=== PATIENT | female | born 1960 | race Caucasian/White ===

== ENCOUNTER → 2016-08-11 | Outpatient (CLI) | payer BC ==
--- NOTE | 2016-08-13 06:57 | MM ---
Reason for exam: screening (asymptomatic). Last mammogram was performed 1 year and 1 month ago. History: Patient is postmenopausal. Physical Findings: A clinical breast exam by your physician is recommended on an annual basis and results should be correlated with mammographic findings. MG Screening Mammo w CAD Bilateral CC and MLO view(s) were taken. Prior study comparison: June 29, 2015, bilateral MG screening mammo w CAD. February 01, 2014, bilateral MG screening mammo w CAD. December 07, 2012, bilateral digital screening mammo w/CAD. There are scattered fibroglandular densities. Benign bilateral oil cyst calcifications. No significant changes when compared with prior studies. ASSESSMENT: Negative, BI-RAD 1 RECOMMENDATION: Routine screening mammogram of both breasts in 1 year.
== END | disposition home or self-care (01) ==
LOC: RADMAMWWP 16:26
PROVIDERS: ATTEND Family Medicine
DX: Z12.31 Encounter for screening mammogram for malignant neoplasm of breast (principal)

== ENCOUNTER → 2019-02-25 | Outpatient (CLI) | payer BC ==
--- NOTE | 2019-02-28 07:57 | BD ---
EXAMINATION TYPE: Axial Bone Density DATE OF EXAM: 02/25/2019 COMPARISON: 07/04/2015 CLINICAL HISTORY: Height: 61 IN Weight: 175 LBS FRAX RISK QUESTIONS: Secondary Osteoporosis: 3. Menopause before 45: YES PARTIAL HYST AGE 24 RISK FACTORS HISTORY OF: Active: YES Postmenopausal woman: AGE 24 PARTIAL HYST MEDICATIONS: Thyroid Medications: YES Which medication: Synthroid How Long: SINCE AGE 15 Osteoporosis Medications: YES Which medication: Fosamax How Lon YEARS Additional Medications: VIT D, SYNTHROID, FOSAMAX, EXAM MEASUREMENTS: Bone mineral densitometry was performed using the [employer] System. Bone mineral density as measured about the Lumbar spine is: ----- L1-L4(G/cm2): 1.280 T Score Values are as follows: ----- L2: -0.2 ----- L3: 1.8 ----- L4: 2.1 ----- L1-L4: 0.8 Bone mineral density has: Increased 18.6% since study of: 07/04/2015 Bone mineral density about the R hip (g/cm2): 0.880 Bone mineral density about the L hip (g/cm2): 0.817 T Score values are as follows: -----R Neck: -1.1 -----L Neck: -1.6 -----R Total: -0.6 -----L Total: -1.5 Bone mineral density has: Increased 6.6% since study of: 07/04/2015 IMPRESSION: Osteopenia (T Score between -2.5 and -1) remains present. There remains slightly increased risk of fracture and the patient may be considered for treatment. Re-Screen 2-5 years. NOTE: T-SCORE=SD OF THE YOUNG ADULT MEAN.
--- NOTE | 2019-02-28 10:36 | MM ---
Reason for exam: screening (asymptomatic). Last mammogram was performed 2 years and 6 months ago. History: Patient is postmenopausal. Physical Findings: A clinical breast exam by your physician is recommended on an annual basis and results should be correlated with mammographic findings. MG Screening Mammo w CAD Bilateral CC and MLO view(s) were taken. Prior study comparison: August 11, 2016, bilateral MG screening mammo w CAD. June 29, 2015, bilateral MG screening mammo w CAD. There are scattered fibroglandular densities. Stable benign calcifications. There is no discrete abnormality. No significant changes when compared with prior studies. ASSESSMENT: Benign, BI-RAD 2 RECOMMENDATION: Routine screening mammogram of both breasts in 1 year.
== END | disposition home or self-care (01) ==
LOC: RADMAMWWP 15:16
PROVIDERS: ATTEND Family Medicine
DX: Z12.31 Encounter for screening mammogram for malignant neoplasm of breast (principal); M85.80 Other specified disorders of bone density and structure, unspecified site
CPT/HCPCS: 77067; 77080

== ENCOUNTER → 2020-08-02 | Outpatient (CLI) | payer BC ==
--- NOTE | 2020-08-07 11:42 | MM ---
Reason for exam: screening (asymptomatic). Last mammogram was performed 1 year and 5 months ago. History: Patient is postmenopausal. Physical Findings: A clinical breast exam by your physician is recommended on an annual basis and results should be correlated with mammographic findings. MG Screening Mammo w CAD Bilateral CC and MLO view(s) were taken. Prior study comparison: February 25, 2019, bilateral MG screening mammo w CAD. August 11, 2016, bilateral MG screening mammo w CAD. There are scattered fibroglandular densities. No significant changes when compared with prior studies. ASSESSMENT: Benign, BI-RAD 2 RECOMMENDATION: Routine screening mammogram of both breasts in 1 year.
== END | disposition home or self-care (01) ==
LOC: RADMAMWWP 15:16
PROVIDERS: ATTEND Family Medicine
DX: Z12.31 Encounter for screening mammogram for malignant neoplasm of breast (principal)
CPT/HCPCS: 77067

== ENCOUNTER → 2020-09-17 | Outpatient (CLI) | payer BC ==
--- NOTE | 2020-09-18 06:46 | MR ---
EXAMINATION TYPE: MR shoulder LT wo con DATE OF EXAM: 09/17/2020 COMPARISON: 11/13/2015 HISTORY: Left shoulder pain for 1 month. Multiplanar multiecho imaging of the left shoulder was performed without contrast. There are is metal artifact from previous surgery at the greater tuberosity of the humerus with metal pins. There is intact biceps tendon. The subscapularis tendon is intact. There is some narrowing of the glenohumeral joint space. There is intrasubstance tear in the supraspinatus tendon without retraction. There is no evidence of a fracture. I see no focal bone destruction. There is deformity of the superior glenoid labrum on the coronal images. IMPRESSION: Deformity of the superior glenoid labrum consistent with chronic tear and possibly surgery that is a change compared to old exam. There is clearing of the small shoulder joint effusion compared to old e xam. Mild osteoarthritic narrowing of the shoulder joint space. Intrasubstance tear of the supraspina tus tendon without a definite full-thickness tear. There is increased fluid signal in the tendon comp ared to old exam and consistent with chronic tendinitis.. There is improvement in the subacromial imp ingement compared to previous exam with apparent surgery at the AC joint.
== END | disposition home or self-care (01) ==
LOC: RADMRIMAIN 18:46
PROVIDERS: ATTEND Orthopaedic Surgery
DX: M19.012 Primary osteoarthritis, left shoulder (principal); M75.112 Incomplete rotator cuff tear or rupture of left shoulder, not specified as traumatic; M75.42 Impingement syndrome of left shoulder

== ENCOUNTER → 2020-10-26 | Outpatient (CLI) | payer BC ==
[2020-10-26 16:07] LABS: Basophils % (A) 1 %; Eosinophils # (A) 0.1 k/uL (0-0.7); Eosinophils % (A) 2 %; HCT 41.8 % (34.0-46.0); HGB 13.5 gm/dL (11.4-16.0); Lymphocytes # (A) 1.5 k/uL (1.0-4.8); Lymphocytes % (A) 28 %; MCH 30.5 pg (25.0-35.0); MCHC 32.2 g/dL (31.0-37.0); MCV 94.6 fL (80.0-100.0); Mean Platelet Volume 6.9; Monocytes # (A) 0.3 k/uL (0-1.0); Monocytes % (A) 5 %; Neutrophils # (A) 3.5 k/uL (1.3-7.7); Neutrophils % (A) 63 %; Platelet Count 224 k/uL (150-450); RBC 4.42 m/uL (3.80-5.40); RDW 13.7 % (11.5-15.5); WBC 5.5 k/uL (3.8-10.6)
[2020-10-26 16:13] LABS: Potassium 4.5 mmol/L (3.5-5.1)
== END | disposition home or self-care (01) ==
LOC: LABPAT 15:24
PROVIDERS: ATTEND Orthopaedic Surgery
DX: Z01.818 Encounter for other preprocedural examination (principal); M75.42 Impingement syndrome of left shoulder
CPT/HCPCS: 36415; 80051; 85025; 93005

== ENCOUNTER 2020-11-08 07:37 | Day surgery (SDC) | payer BC ==
[2020-11-06 11:43] VITALS: BMI 32.5
--- NOTE | 2020-11-07 18:03 | HP ---
HISTORY AND PHYSICAL DATE OF SURGERY: 11/08/2020 Liliana Kelly is a 60-year-old patient seen with progressive left shoulder pain. We discussed options for treatment. She elected to proceed with arthroscopy. Consent was obtained. PAST MEDICAL HISTORY: Hypothyroidism and asthma. PAST SURGICAL HISTORY: Left shoulder arthroscopy. DAILY MEDICATIONS: Hydrocodone, Synthroid. ALLERGIES: NONE. SOCIAL HISTORY: She denies current tobacco use. PHYSICAL EVALUATION OF HER LEFT SHOULDER: Flexion is 150, abduction is 130, external rotation is 30 with pain and weakness. There is tenderness along the anterolateral acromion and rotator cuff insertion site. Impingement is positive at 90. Drop-arm sign is positive. Distal neurovascular exam is intact. RADIOGRAPHS: Radiographs of the left shoulder revealed some cystic changes of the tuberosity. Left shoulder MRI revealed labral tear and partial rotator cuff tendon tear. IMPRESSION: 1. Left shoulder labral tear with possible rotator cuff tear. 2. Hypothyroidism. PLAN: Left shoulder arthroscopy with labral repair versus debridement, possible arthroscopic rotator cuff repair. MMODL / IJN: [id number] /
[~2020-11-08 07:37] MED LIST: DEXAMETHASONE SOD PHOSPHATE 4 MG/ML 1 ML VIAL IV ONE; HYDROmorphone 0.5 MG/0.5 ML SYRINGE IVP PRN; LACTATED RINGERS 1,000 ML IV SCH; LIDOCAINE 1% (10MG/ML) FOR IV START INTRADERMA PRN; MIDAZOLAM 2 MG/2 ML VIAL IV PRN; ONDANSETRON 4 MG/2 ML VIAL IVP ONE
[2020-11-08 08:16] LABS: Glucose,Whole Blood 97 mg/dL (75-99)
[2020-11-08] MEDS ORDERED: MIDAZOLAM 2 MG/2 ML VIAL IVP ONE ×2 (08:20→08:25)
[2020-11-08] MEDS ORDERED: ROPIVACAINE 5 MG/ML 30 ML VIAL ONE (09:06)
[2020-11-08] MEDS ORDERED: SUCCINYLCHOLINE CHLORIDE 100 MG/5 ML SYR IV ONE (09:06)
[2020-11-08] MEDS ORDERED: GLYCOPYRROLATE 0.2 MG/ML 2 ML VIAL ONE (09:06)
[2020-11-08] MEDS ORDERED: ePHEDrine SULFATE/0.9% NACL/PF 50 MG/5 ML SYRINGE IV ONE (09:06)
[2020-11-08] MEDS ORDERED: DEXAMETHASONE SOD PHOSPHATE 4 MG/ML 1 ML VIAL ONE (09:06)
[2020-11-08] MEDS ORDERED: PROPOFOL 10 MG/ML 20 ML VIAL IV ONE (09:06)
[2020-11-08] MEDS ORDERED: LIDOCAINE 1% INJ 10MG/ML (20 ML MDV) ONE (09:06)
[2020-11-08] MEDS ORDERED: fentaNYL (PF) 50 MCG/ML 2 ML AMP ONE (09:06)
[2020-11-08] MEDS ORDERED: LACTATED RINGERS 1,000 ML IV ONE (10:04)
--- NOTE | 2020-11-08 10:36 | P.OP ---
Date of Procedure: 11/08/20 Preoperative Diagnosis: Left shoulder impingement Postoperative Diagnosis: 1. Left shoulder rotator cuff tear 2. Left shoulder impingement Procedure(s) Performed: 1. Left shoulder arthroscopic rotator cuff repair 2. Left shoulder arthroscopic subacromial decompression Implants: 1Arthrex 4.75 swivel lock anchor Anesthesia: GETA, local (Interscalene block) Surgeon: Keyon Baum Plastic Parts Designer #1: Willam Masters Estimated Blood Loss (ml): 7 Pathology: none sent Condition: stable Disposition: PACU Indications for Procedure: 60-year-old patient seen with progressive left shoulder pain. After having treatment options discussed, she elected to proceed with arthroscopy. Operative Findings: See description of procedure Description of Procedure: Patient underwent an interscalene block by department of anesthesia. The patient was then taken to the operative suite. The patient underwent a general anesthetic by the department of anesthesia. The patient was placed into a lateral position and secured. There was appropriate padding of the bony prominence. Left shoulder was then prepped and draped in normal sterile orthopedic fashion. We placed the extremity in 10 pounds of longitudinal traction. A posterior incision was now made for a posterior working portal site. The trocar and cannula were inserted into the glenohumeral joint. Arthroscopy was initiated. Spinal needle was now inserted anteriorly, to ascertain the anterior working portal site. An incision was now made in that area, a trocar was inserted followed by a probe. The labrum was probed and found to be stable. There were grade 2/3 chondromalacia changes of the glenohumeral joint with no osteochondral tears present. The biceps tendon was absent. Instruments now removed from glenohumeral joint. Utilizing the posterior working portal site, the trocar and cannula were inserted into the subacromial space. Arthroscopy initiated. I made an incision 2 fingerbreadths lateral to the acromion. I introduced my trocar followed by my ArthroCare ablator. I now began ablating thick subacromial bursal tissue, which exposed the undersurface of the anterior acromion. There was a previous decompression with residual bony prominence at the acromioclavicular joint area. I introduced a motorized shaver and performed a decompression. There was good decompression of the entire subacromial space. The acromioclavicular joint was visualized and noted to have some osteoarthritis but not enough to warrant a Jeromy procedure. I noted some significant tearing along the distal supraspinatus. Upon probing the area was a full-thickness perforation present. There was residual suture and the areas well consistent with the previous repair. This tear actually appeared to be at the area of the posterior aspect of the previous repair and more posterior to that. I did debride the margins getting down to stable tendon tissue. The defect measured 1.5 cm and was freely mobile over the footprint. I removed some residual suture along the anterior defect. I abraded the footprint with a motorized bur. I passed 2 everted mattress sutures with Arthrex fiber tape through good bites of rotator cuff tendon with the assistance of Willam SILVER. I punched a hole in the footprint area for insertion of an anchor. I passed all 4 limbs of fiber tape through the eyelet of a 4.75 Arthrex swivel lock anchor. I placed the eyelet into the pre- punch hole and held in position while Willam SILVER tensioned all the sutures and the donna the anchor with excellent fixation noted. All residual suture limbs were now clipped. We had good compression of the tendon along the entire footprint. Instruments now removed from the portal sites. All portal sites were approximated with nylon suture. Sterile dressings were applied followed by a shoulder sling. Willam SILVER assisted in this complex case. The patient was awakened, transferred to a bed, and taken to recovery in stable condition.
[2020-11-08 10:47] VITALS: TEMP 96.8
[2020-11-08 11:43] VITALS: BP 127/81; PULSE 73; RESP 20
--- NOTE | 2020-11-08 20:07 | P.ANPRN ---
Procedure Note - Anesthesia - Nerve Block Performed Left Interscalene Single Time Out Performed: Yes Date of Procedure: 11/08/20 Procedure Start Time: : Procedure Stop Time: :30 Location of Patient: PreOp Indication: Acute Post-Operative Pain, Requested by Surgeon Sedation Type: Sedate with meaningful contact maintained Preparation: Sterile Prep Position: Supine Needle Types: Pajunk Needle Gauge: 21 Ultrasound used to visualize needle placement: Yes Ultrasound used to observe medication spread: Yes Blood Aspirated: No Pain Paresthesia on Injection Noted: No Resistance on Injection: Normal Image Stored and Saved: Yes Events: Uneventful and Well Tolerated (ropi .5% 20cc plus dexamethasone 4mg)
== END 2020-11-08 12:08 | disposition home or self-care (01) ==
LOC: OR 07:37
PROVIDERS: ATTEND Orthopaedic Surgery
DX: M75.102 Unspecified rotator cuff tear or rupture of left shoulder, not specified as traumatic (principal); E03.9 Hypothyroidism, unspecified; J45.909 Unspecified asthma, uncomplicated; Z79.899 Other long term (current) drug therapy; S43.402A Unspecified sprain of left shoulder joint, initial encounter; X58.XXXA Exposure to other specified factors, initial encounter
CPT/HCPCS: 64415; 76942; 29827; 29826; C1713; J2250; J1100; J0690; J2405; J2001; J3010; J2795; J0330; J2704

== ENCOUNTER 2020-11-16 19:23 | Emergency (ER) | payer BC ==
[2020-11-16 19:28] VITALS: PULSE 80
--- NOTE | 2020-11-16 19:48 | ED ---
Lower Extremity Injury HPI - General Chief Complaint: Extremity Injury, Lower Stated Complaint: Lft knee pain Time Seen by Provider: 11/16/20 19:30 Source: patient Mode of arrival: wheelchair Limitations: no limitations - History of Present Illness Initial Comments: 60-year-old male presents to the emergency department with a chief complaint of left knee and leg swelling. Patient reports it is ago she had left shoulder surgery. States about 3 days ago she developed left knee swelling. States the pain is rating distally along with swelling to the knee. She reports wearing a compression stocking to help with the swelling. She reports some Pain near the popliteal region. She denies any paresthesias or weakness to the leg. She reports pain is exacerbated with weightbearing, full flexion and full extension. She denies any erythema or ecchymotic changes. Denies chest pain or shortness of breath. - Related Data Home Medications Medication Instructions Recorded Confirmed Alendronate Sodium/Vitamin D3 1 tab PO TOBIN 12/13/15 11/16/20 [Fosamax Plus D 70 mg-2,800 Iu] Calcium Carbonate/Vitamin D3 1 tab PO DAILY 12/13/15 11/16/20 [Calcium 600-Vit D3 200 Tablet] Multivitamins, Thera [Multivitamin] 1 tab PO DAILY 02/04/16 11/16/20 Albuterol Sulfate [Proair Hfa] 1 - 2 puff INHALATION RT-Q6H PRN 11/16/20 11/16/20 Levothyroxine Sodium [Synthroid] 125 mcg PO DAILY 11/16/20 11/16/20 Previous Rx's Medication Instructions Recorded HYDROcodone/APAP 7.5-325MG [Palm 1 tab PO Q6HR PRN #24 tab 11/08/20 7.5-325] Allergies Allergy/AdvReac Type Severity Reaction Status Date / Time No Known Allergies Allergy Verified 11/16/20 19:53 Review of Systems ROS Statement: Those systems with pertinent positive or pertinent negative responses have been documented in the HPI. ROS Other: All systems not noted in ROS Statement are negative. Past Medical History Past Medical History: Asthma, Diabetes Mellitus, Thyroid Disorder Additional Past Medical History / Comment(s): diet control diabetic, anemia, History of Any Multi-Drug Resistant Organisms: None Reported Past Surgical History: Appendectomy, Bariatric Surgery, Bladder Surgery, Cholecystectomy, Hysterectomy, Orthopedic Surgery Additional Past Surgical History / Comment(s): thyroidectomy, blanquita carpel tunnel, left knee arthroscopy, lap band/later removed, gastric sleeve, left shoulder 2020 Past Anesthesia/Blood Transfusion Reactions: Previous Problems w/ Anesthesia Additional Past Anesthesia/Blood Transfusion Reaction / Comment(s): "hard to wake up" Past Psychological History: No Psychological Hx Reported Smoking Status: Never smoker Past Alcohol Use History: Rare Past Drug Use History: None Reported - Past Family History Sister(s) Family Medical History: Cancer General Exam Limitations: no limitations General appearance: alert, in no apparent distress, obese Head exam: Present: atraumatic, normocephalic, normal inspection Eye exam: Present: normal appearance, PERRL, EOMI Pupils: Present: normal accommodation ENT exam: Present: normal exam, normal oropharynx, mucous membranes moist Neck exam: Present: normal inspection, full ROM. Absent: tenderness Respiratory exam: Present: normal lung sounds bilaterally. Absent: respiratory distress, wheezes, rales, rhonchi, stridor, chest wall tenderness, accessory muscle use Cardiovascular Exam: Present: regular rate, normal rhythm, normal heart sounds. Absent: systolic murmur Extremities exam: Present: normal inspection (Mild swelling noted towards the left knee.), full ROM, tenderness (Tenderness in the lateral end of the patellar region. There is also some tenderness noted near the proximal calf.), normal capillary refill, calf tenderness (left calf), other (Palpable DP and PT bilaterally). Absent: pedal edema, joint swelling Back exam: Present: normal inspection, full ROM. Absent: tenderness, CVA tenderness (R), CVA tenderness (L) Neurological exam: Present: alert, oriented X3 Psychiatric exam: Present: normal affect, normal mood Skin exam: Present: warm, dry, intact, normal color Course Vital Signs 11/16/20 19:24 Temperature 98.5 F Pulse Rate 80 Respiratory 19 Rate Blood Pressure 153/90 O2 Sat by Pulse 100 Oximetry Medical Decision Making - Medical Decision Making 60-year-old male presents to the emergency department with a chief complaint of left knee and leg swelling. On physical examination, mild swelling over the left knee. No signs of infection at this time. Ultrasound reveals no signs of a DVT. X-ray of the knee shows hypertrophic osteoarthritis. Likely this is causing the patient's symptoms. I advised her to follow-up with her orthopedic doctor regarding the symptoms she is extracted. She is otherwise neurovascularly intact. Does not have any chest pain or shortness of breath. Advised to take Tylenol home. She cannot take antibiotics or medications due to a gastric sleeve. Strict return parameters were thoroughly discussed the patient is understanding and agreeable. Case discussed with Disposition Clinical Impression: Swelling of left knee joint, Left knee pain Disposition: HOME SELF-CARE Condition: Stable Instructions (If sedation given, give patient instructions): Knee Pain (ED) Additional Instructions: Please return to the Emergency Department if symptoms worsen or any other concerns. Is patient prescribed a controlled substance at d/c from ED?: No Referrals: Francisco Yu MD [Primary Care Provider] - 1-2 days Time of Disposition: 21:32
--- NOTE | 2020-11-16 20:25 | XR ---
EXAMINATION TYPE: XR knee complete LT DATE OF EXAM: 11/16/2020 COMPARISON: None HISTORY: Pain TECHNIQUE: 3 views FINDINGS: There is moderate narrowing of the medial joint space. I see no fracture nor dislocation. T here is large knee joint effusion. There is spurring on the patella. IMPRESSION: Hypertrophic osteoarthritis. No fracture.
--- NOTE | 2020-11-16 21:25 | US ---
EXAMINATION TYPE: US venous doppler duplex LE LT DATE OF EXAM: 11/16/2020 9:13 PM COMPARISON: NONE CLINICAL HISTORY: r/o dvt. left knee pain for 2 days SIDE PERFORMED: left TECHNIQUE: The lower extremity deep venous system is examined utilizing real time linear array sonog malcolm with graded compression, doppler sonography and color-flow sonography. VESSELS IMAGED: Common Femoral Vein Deep Femoral Vein Greater Saphenous Vein * Femoral Vein Popliteal Vein Small Saphenous Vein * Proximal Calf Veins (* superficial vessels) Left Leg: no evidence of DVT at this time. rouleaux flow left popliteal vein IMPRESSION: No evidence of deep vein thrombosis in the left leg.
[2020-11-16 22:00] VITALS: BP 142/72; RESP 18; TEMP 98.2
== END 2020-11-16 21:58 | disposition home or self-care (01) ==
LOC: EC 19:23
DX: M25.562 Pain in left knee (principal); J45.909 Unspecified asthma, uncomplicated; E11.9 Type 2 diabetes mellitus without complications; E07.9 Disorder of thyroid, unspecified; Z90.49 Acquired absence of other specified parts of digestive tract; Z90.89 Acquired absence of other organs; Z90.710 Acquired absence of both cervix and uterus
CPT/HCPCS: 99284

== ENCOUNTER → 2021-04-19 | Outpatient (CLI) | payer OTHER ==
--- NOTE | 2021-04-19 10:12 | XR ---
Right hand HISTORY: Trauma one week prior and pain and swelling 3 views of the right hand Bone mineralization, joint spaces and alignment are maintained. Punctate metallic density medial to t he proximal middle phalanx of the third digit right hand is well-corticated and not felt likely to be acute. There is some calcification seen along the region of the triangular fibrocartilage. Arthropat hy change present at the carpometacarpal joint of the first digit. IMPRESSION: No acute fracture or dislocation. Consider crystal deposition arthropathy, osteoarthritis
== END | disposition home or self-care (01) ==
LOC: RADXRMAIN 09:27
PROVIDERS: ATTEND Emergency Medicine
DX: M79.641 Pain in right hand (principal); S69.91XA Unspecified injury of right wrist, hand and finger(s), initial encounter

== ENCOUNTER → 2021-09-17 | Outpatient (CLI) | payer BC | END | disposition home or self-care (01) | LOC: LABPAT 09:44 | PROVIDERS: ATTEND Orthopaedic Surgery | DX: Z01.812 Encounter for preprocedural laboratory examination (principal); M17.12 Unilateral primary osteoarthritis, left knee; Z22.322 Carrier or suspected carrier of Methicillin resistant Staphylococcus aureus | CPT/HCPCS: 87070 ==

== ENCOUNTER → 2021-10-01 | Outpatient (CLI) | payer BC ==
[2021-10-01 16:45] LABS: Partial Thromboplastin Time 25.6 sec (22.0-30.0); Prothrombin Time 10.7 sec (9.0-12.0)
[2021-10-01 23:40] LABS: Basophils # (A) 0.03 X 10*3/uL (0.00-0.10); Basophils % (A) 0.5 %; Eosinophils # (A) 0.16 X 10*3/uL (0.04-0.35); Eosinophils % (A) 2.6 %; HCT 40.4 % (37.2-46.3); HGB 12.9 g/dL (12.0-15.0); Immature Grans, Automated 0.2 %; Lymphocytes % (A) 27.8 %; MCHC 31.9 g/dL (32.0-37.0); Mean Platelet Volume 9.6 fL (9.5-12.2); Monocytes # (A) 0.43 X 10*3/uL (0.20-1.00); NRBC Per 100 WBC 0 /100 WBCS (0.0-0.0); Neutrophils # (A) 3.78 X 10*3/uL (1.80-7.70); Neutrophils % (A) 61.9 %; Platelet Count 251 X 10*3/uL (140-440); RDW 12.7 % (11.5-14.5); WBC 6.11 X 10*3/uL (4.50-10.00)
[2021-10-01 23:48] LABS: Albumin 4.5 g/dL (3.8-4.9); Albumin/Globulin Ratio 1.36 (1.60-3.17); Anion Gap 12.3 mmol/L (10.00-18.00); BUN/Creat Ratio 22.78 Ratio (12.00-20.00); Blood Urea Nitrogen 20.5 mg/dL (9.0-27.0); Calcium 9.7 mg/dL (8.7-10.3); Carbon Dioxide 22.7 mmol/L (20.0-27.5); Globulin 3.3 g/dL (1.6-3.3); Potassium 4.6 mmol/L (3.5-5.5); Total Bilirubin 0.3 mg/dL (0.30-1.20); Total Protein 7.8 g/dL (6.2-8.2)
[2021-10-02 00:49] LABS: Appearance,Urine Turbid (Clear); Bacteria,Urine 3+ /HPF (None Seen); Bilirubin,Urine Negative (Negative); Blood,Urine Trace (Negative); Calcium Oxalate Crystals,Urine Present /LPF (None Seen); Color,Urine Yellow (Yellow); Ketones,Urine Negative (Negative); Nitrite,Urine Positive (Negative); Specific Gravity,Urine 1.026 (1.001-1.030)
== END | disposition home or self-care (01) ==
LOC: LABPAT 15:23
PROVIDERS: ATTEND Family Medicine
DX: Z01.812 Encounter for preprocedural laboratory examination (principal); E03.9 Hypothyroidism, unspecified; M17.12 Unilateral primary osteoarthritis, left knee; M54.40 Lumbago with sciatica, unspecified side; M85.80 Other specified disorders of bone density and structure, unspecified site; G89.29 Other chronic pain; K21.9 Gastro-esophageal reflux disease without esophagitis; Z86.16 Personal history of COVID-19
CPT/HCPCS: 80053; 81001; 85025; 85610; 85730

== ENCOUNTER → 2021-10-14 | Day surgery (SDC) | payer BC, OTHER ==
[2021-10-11 09:31] VITALS: BMI 33.4
--- NOTE | 2021-10-13 10:35 | HP ---
HISTORY AND PHYSICAL DATE OF SURGERY: 10/14/2021 Liliana Kelly is a 60-year-old patient seen with symptomatic left knee osteoarthritis. We discussed options for treatment. She elected to proceed with left total knee arthroplasty. Consent regarding the procedure was obtained. Clearance was provided by Dr. Yu. PAST MEDICAL HISTORY: Hypothyroidism, asthma. PAST SURGICAL HISTORY: Left shoulder arthroscopy. DAILY MEDICATIONS: Synthroid. ALLERGIES: NONE. SOCIAL HISTORY: She denies tobacco use. PHYSICAL EVALUATION OF THE LEFT KNEE: Her range of motion is negative 7 to 85. Moderate effusion. Tenderness, medial joint line. Crepitus, medial and patellofemoral compartments with range of motion. Pain with patellofemoral compression. Ligaments stable. Hip rotation without pain. Distal neurovascular exam is intact. Radiographs of the left knee reveal severe osteoarthritic changes. IMPRESSION: 1. Left knee osteoarthritis. 2. Hypothyroidism. 3. Asthma. PLAN: Left total knee arthroplasty. MMODL / IJN: [id number] /
[~2021-10-14] MED LIST changes: +ACETAMINOPHEN TAB 500 MG TAB PO PRN; -DEXAMETHASONE SOD PHOSPHATE 4 MG/ML 1 ML VIAL IV ONE; +DEXAMETHASONE SOD PHOSPHATE 4 MG/ML 1 ML VIAL ONE; +HYDROcodone/APAP 5-325MG 1 EACH TAB PO PRN; +HYDROcodone/APAP 7.5-325MG 1 EACH TAB ONE; +HYDROcodone/APAP 7.5-325MG 1 EACH TAB PO ONE; +HYDROcodone/APAP 7.5-325MG 1 EACH TAB PO PRN; +HYDROmorphone (PF) 1 MG/ML ONE; +HYDROmorphone 0.2 MG/1 ML SYRINGE IVP PRN; +LACTATED RINGERS 1,000 ML BAG IV ONE; +LACTATED RINGERS 1,000 ML IV ONE; -LACTATED RINGERS 1,000 ML IV SCH; -LIDOCAINE 1% (10MG/ML) FOR IV START INTRADERMA PRN; +LIDOCAINE 2% INJ 20 MG/ML (2 ML VIAL) ONE; +MELOXICAM 7.5 MG TAB PO PRN; -MIDAZOLAM 2 MG/2 ML VIAL IV PRN; +MIDAZOLAM 2 MG/2 ML VIAL ONE; +NALOXONE 0.4 MG/ML 1 ML VIAL IV PRN; +ONDANSETRON 4 MG/2 ML VIAL IVP PRN; +ONDANSETRON 4 MG/2 ML VIAL ONE; +PROPOFOL 10 MG/ML 20 ML VIAL IV ONE; +ROPIVACAINE 0.2%-NS ON-Q PUMP 1,090 MG, EMPTY PAIN BALL 1 EACH MISCELLANE PRN; +ROPIVACAINE 5 MG/ML 30 ML VIAL ONE; +SODIUM CHLORIDE 0.9% (PF) 10 ML VIAL ONE; +SUCCINYLCHOLINE CHLORIDE 100 MG/5 ML SYR IV ONE; +TRANEXAMIC ACID IN NACL,ISO-OS 1,000 MG in SALINE 1 100ML.BAG IVPB PRN; +TRANEXAMIC ACID IN NACL,ISO-OS 1,000 MG/100 ML BAG ONE; +ceFAZolin 1,000 MG in SODIUM CHLORIDE 0.9% 1,000 ML IRRIGATION ONE; +ePHEDrine 50 MG/ML 1 ML VIAL ONE; +fentaNYL (PF) 50 MCG/ML 2 ML AMP ONE
[2021-10-14] MEDS: IV FLUID CONTINUATION 400 ML IV ONE ×2 (07:29→10:34)
[2021-10-14 10:46] LABS: Glucose,Whole Blood 81 mg/dL (75-99)
--- NOTE | 2021-10-14 11:44 | P.ANPRN ---
Procedure Note - Anesthesia - Nerve Block Performed Left Adductor Canal Infusion Time Out Performed: Yes Date of Procedure: 10/14/21 Procedure Start Time: :02 Procedure Stop Time: 07:13 Location of Patient: PreOp Indication: Requested by Surgeon Specifically requested for management of pain by DrRen: Keyon Baum Sedation Type: Sedate with meaningful contact maintained Preparation: Sterile Prep, Sterile Dressing Position: Supine Catheter: Indwelling Needle Types: Pajunk Needle Gauge: 18 Ultrasound used to visualize needle placement: Yes Ultrasound used to observe medication spread: Yes Injectate: 0.5% Ropivacaine (see comment for volume) (15 ml + 15 ml 0.9 % NS) Blood Aspirated: No Pain Paresthesia on Injection Noted: No Resistance on Injection: Normal Image Stored and Saved: Yes Events: Uneventful and Well Tolerated
--- NOTE | 2021-10-14 11:46 | P.ANPRN ---
Procedure Note - Anesthesia - Nerve Block Performed Left iPack Single Time Out Performed: Yes Date of Procedure: 10/14/21 Procedure Start Time: :14 Procedure Stop Time: Location of Patient: PreOp Indication: Requested by Surgeon (cheyenne hartman) Specifically requested for management of pain by Dr.: Keyon Baum Sedation Type: Sedate with meaningful contact maintained Preparation: Sterile Prep Position: Right Lateral Needle Types: Pajunk Needle Gauge: 21 Ultrasound used to visualize needle placement: Yes Ultrasound used to observe medication spread: Yes Injectate: 0.5% Ropivacaine (see comment for volume) (15 ml =+ 10 ml NS +4mg Dexamethasone) Blood Aspirated: No Pain Paresthesia on Injection Noted: No Resistance on Injection: Normal Image Stored and Saved: Yes Events: Uneventful and Well Tolerated
[2021-10-14 13:49] VITALS: RESP 14
--- NOTE | 2021-10-14 13:56 | OP ---
OPERATIVE REPORT DATE OF SERVICE: 10/14/2021. PREOPERATIVE DIAGNOSIS: Symptomatic left knee osteoarthritis. POSTOPERATIVE DIAGNOSIS: Symptomatic left knee osteoarthritis. PROCEDURE: Left total knee arthroplasty. SURGEON: Dr. Baum. ASSIST: Duncan SILVER. ANESTHESIA: General with preoperative canal catheter, and iPack block for postoperative pain management. ESTIMATED BLOOD LOSS: 75 mL. IMPLANTS: 1. DePuy Attune size 4 left cruciate-retaining cemented femur. 2. DePuy Attune size 4 fixed bearing cemented tibial base plate. 3. DePuy Attune size 4 fixed bearing cruciate retaining, 8 mm polyethylene tibial insert. 4. DePuy Attune 35 mm all-polyethylene cemented patella. INDICATIONS: 60-year-old patient seen with symptomatic left knee osteoarthritis. After treatment options were discussed, she elected to proceed with left total knee arthroplasty. Consent was obtained. PROCEDURE: The patient underwent a adductor canal catheter placement and iPack block by the Department of Anesthesia for postoperative pain management. She was taken to the operative suite. She underwent general anesthetic by Department of Anesthesia. She received preoperative IV antibiotics and TXA. A well-padded tourniquet was placed along the proximal left thigh. The left lower extremity was prepped and draped in normal sterile orthopedic fashion. The extremity was elevated and tourniquet insufflated to 300. I made an anterior incision sharply through skin. Dissected down through the subcutaneous soft tissues down to the extensor mechanism. I then made a medial arthrotomy and the patella was everted. Knee flexed and I noted severe osteoarthritic changes throughout the medial patellofemoral compartments. I now made intramedullary drill hole to distal femur placement. I placed intramedullary distal femoral cutting jig and made the distal femoral cut. I now placed retractors along the proximal tibia. I used my proximal tibial cutting jig to make proximal tibial cut. I now used my distal femoral sizing guide and made appropriate distal femoral pins to accommodate that. A size 4 4 in 1 cutting guide was positioned. The distal femoral cuts were made. I now placed the knee in full extension. Debrided out any residual meniscal tissue and performed some hemostasis of the posterior capsule. I now made the appropriate notch cut for our femoral component. We then placed our trial components in position. I took the knee through range of motion. We had full extension, full flexion with good intraoperative stability about the knee. The patella was everted. A flush was made patellar quad tendon. I now trialed a 35, patella was tracking nicely. Appropriate peg hole drills were made and the trial patella was positioned again and tracked nicely. I had now drilled the femoral lug holes for the femoral component. I then removed all trial components. We then placed retractors along the proximal tibia. I then placed my size 4 guide and made the appropriate keel punch hole. I now took the knee back into full extension. We copiously irrigated the joint with mechanical pulse lavage irrigation. I achieved additional hemostasis via electrocautery. We now opened all the implant components. We then irrigated the wound out again copiously with pulse lavage mechanical irrigation. We mixed our antibiotic methylmethacrylate. Once that was ready, the knee was again flexed. We dried it out with fresh sponges. Retractors were positioned on the proximal tibia. I cemented down our the tibial tray. Any excess methylmethacrylate was removed. I then inserted the polyethylene tibial tray, locked in the position. We then cemented down the femoral component making sure were removed any excess methylmethacrylate. We then cemented down the patella and held in position with a patellar clamp. The knee was held in full extension. Patella clamp positioned once the methylmethacrylate had hardened. Once it hardened, the patellar clamp was removed. We now released the tourniquet. We achieved hemostasis via electrocautery diligently. We now irrigated the wound out copiously with mechanical irrigation. the extensor mechanism with #1 Ethibond. I checked that repair and it was stable. We repaired the subcu soft tissues with 2-0 Vicryl followed by repairing the skin with a mixture of subcutaneous suture and skin glue and . Sterile dressings were applied. The patient was now awakened and transferred to recovery in stable condition having tolerated the procedure well. Duncan Delaney assisted with the procedure. MMODL / IJN: [id number] /
[2021-10-14 14:54] VITALS: BP 146/78; PULSE 98
--- NOTE | 2021-10-14 15:09 | XR ---
EXAMINATION TYPE: XR knee limited LT DATE OF EXAM: 10/14/2021 COMPARISON: 11/08/2020 HISTORY: Postop TECHNIQUE: 2 view left knee FINDINGS: Tibial and femoral components are present. No acute fracture or dislocation is evident. Pos tsurgical changes are present within the soft tissues. IMPRESSION: 1. No acute fracture post knee replacement.
== END | disposition home health service (06) ==
LOC: OR 05:51
PROVIDERS: ATTEND Orthopaedic Surgery
DX: M17.12 Unilateral primary osteoarthritis, left knee (principal); E03.9 Hypothyroidism, unspecified; J45.909 Unspecified asthma, uncomplicated; K21.9 Gastro-esophageal reflux disease without esophagitis; E78.2 Mixed hyperlipidemia; G89.29 Other chronic pain; M54.30 Sciatica, unspecified side; M85.80 Other specified disorders of bone density and structure, unspecified site; E55.9 Vitamin D deficiency, unspecified; E66.9 Obesity, unspecified; Z68.33 Body mass index [BMI] 33.0-33.9, adult; Z83.3 Family history of diabetes mellitus; Z81.1 Family history of alcohol abuse and dependence; Z82.49 Family history of ischemic heart disease and other diseases of the circulatory system; Z83.79 Family history of other diseases of the digestive system; Z84.89 Family history of other specified conditions; Z98.84 Bariatric surgery status; Z90.710 Acquired absence of both cervix and uterus; E89.0 Postprocedural hypothyroidism; Z98.890 Other specified postprocedural states; Z90.49 Acquired absence of other specified parts of digestive tract; Z86.16 Personal history of COVID-19; Z87.19 Personal history of other diseases of the digestive system; Z86.19 Personal history of other infectious and parasitic diseases; Z79.890 Hormone replacement therapy; Z79.51 Long term (current) use of inhaled steroids; Z79.899 Other long term (current) drug therapy
CPT/HCPCS: 97110; 97161; 64999; 64448; 76942; 88300; 73560; 27447; C1776; C1713; J2250; J1100; J0690 ×2; J2405; J3010; J1170; J2795; J0330; J2704; J1790; J2001

== ENCOUNTER → 2022-02-06 | Outpatient (CLI) | payer BC ==
--- NOTE | 2022-02-07 07:41 | MM ---
Reason for Exam: Screening (asymptomatic). Last mammogram was performed 1 year(s) and 6 month(s) ago. Patient History: Menarche at age 10. First Full-Term at age 23. Hysterectomy at age 45. Postmenopausal. Risk Values: Nila 5 year model risk: 1.5%. NCI Lifetime model risk: 6.8%. Prior Study Comparison: 08/11/2016 Bilateral Screening Mammogram, [facility]. 02/25/2019 Bilateral Screening Mammogram, [facility]. 08/02/2020 Bilateral Screening Mammogram, [facility]. Tissue Density: There are scattered fibroglandular densities. Findings: Analyzed By CAD. New nodular asymmetric density right cc view zone B. No suspicious calcifications noted. Punctate calcification is noted bilaterally. Overall Assessment: Incomplete: need additional imaging evaluation, BI-RAD 0 Management: Diagnostic Mammogram of the right breast. A clinical breast exam by your physician is recommended on an annual basis and results should be correlated with mammographic findings. Electronically signed and approved by: Sukhi Shaw M.D. Radiologis
== END | disposition home or self-care (01) ==
LOC: RADMAMWWP 15:42
PROVIDERS: ATTEND Family Medicine
DX: Z12.31 Encounter for screening mammogram for malignant neoplasm of breast (principal); Z78.0 Asymptomatic menopausal state
CPT/HCPCS: 77067

== ENCOUNTER 2022-02-17 08:16 | Day surgery (SDC) | payer BC ==
[2022-02-14 09:31] VITALS: BMI 33.4
--- NOTE | 2022-02-16 23:33 | HP ---
HISTORY AND PHYSICAL DATE OF SURGERY: 02/17/2022 HISTORY OF PRESENT ILLNESS: Liliana Kelly is a 61-year-old patient seen with persistent left knee adhesions with a history of previous total knee arthroplasty, failing conservative treatment measures. We discussed options. She elected to proceed with manipulation under anesthesia of the left knee. Consents obtained. PAST MEDICAL HISTORY: Hypothyroidism, asthma. PAST SURGICAL HISTORY: Total knee arthroplasty. DAILY MEDICATION: Synthroid. ALLERGIES: None. SOCIAL HISTORY: She denies tobacco use. PHYSICAL EVALUATION OF THE LEFT KNEE: She has a well-healed incision. Range of motion is negative 2/3 to 100. Some weakness with quadriceps strength. Distal neurovascular exam is intact. RADIOGRAPHS: Radiographs of the left knee reveal stable-appearing total knee arthroplasty. IMPRESSION: 1. Left knee adhesion/stiffness. 2. History of left total knee arthroplasty. 3. Hypothyroidism. PLAN: Manipulation under anesthesia of the left knee. MMODL / IJN: [id number] /
[~2022-02-17 08:16] MED LIST changes: -ACETAMINOPHEN TAB 500 MG TAB PO PRN; +DEXAMETHASONE SOD PHOSPHATE 4 MG/ML 1 ML VIAL IV ONE; -DEXAMETHASONE SOD PHOSPHATE 4 MG/ML 1 ML VIAL ONE; -HYDROcodone/APAP 5-325MG 1 EACH TAB PO PRN; -HYDROcodone/APAP 7.5-325MG 1 EACH TAB ONE; -HYDROcodone/APAP 7.5-325MG 1 EACH TAB PO ONE; -HYDROcodone/APAP 7.5-325MG 1 EACH TAB PO PRN; -HYDROmorphone (PF) 1 MG/ML ONE; -HYDROmorphone 0.2 MG/1 ML SYRINGE IVP PRN; -HYDROmorphone 0.5 MG/0.5 ML SYRINGE IVP PRN; -LACTATED RINGERS 1,000 ML BAG IV ONE; -LACTATED RINGERS 1,000 ML IV ONE; +LACTATED RINGERS 1,000 ML IV SCH; -LIDOCAINE 2% INJ 20 MG/ML (2 ML VIAL) ONE; -MELOXICAM 7.5 MG TAB PO PRN; -MIDAZOLAM 2 MG/2 ML VIAL ONE; -NALOXONE 0.4 MG/ML 1 ML VIAL IV PRN; -ONDANSETRON 4 MG/2 ML VIAL IVP PRN; -ONDANSETRON 4 MG/2 ML VIAL ONE; -PROPOFOL 10 MG/ML 20 ML VIAL IV ONE; -ROPIVACAINE 0.2%-NS ON-Q PUMP 1,090 MG, EMPTY PAIN BALL 1 EACH MISCELLANE PRN; -ROPIVACAINE 5 MG/ML 30 ML VIAL ONE; -SODIUM CHLORIDE 0.9% (PF) 10 ML VIAL ONE; -SUCCINYLCHOLINE CHLORIDE 100 MG/5 ML SYR IV ONE; -TRANEXAMIC ACID IN NACL,ISO-OS 1,000 MG in SALINE 1 100ML.BAG IVPB PRN; -TRANEXAMIC ACID IN NACL,ISO-OS 1,000 MG/100 ML BAG ONE; -ceFAZolin 1,000 MG in SODIUM CHLORIDE 0.9% 1,000 ML IRRIGATION ONE; -ePHEDrine 50 MG/ML 1 ML VIAL ONE; -fentaNYL (PF) 50 MCG/ML 2 ML AMP ONE
[2022-02-17 08:42] VITALS: TEMP 97.2
[2022-02-17 08:57] LABS: Glucose,Whole Blood 93 mg/dL (70-110)
[2022-02-17] MEDS ORDERED: MIDAZOLAM 2 MG/2 ML VIAL ONE (09:08)
[2022-02-17] MEDS ORDERED: PROPOFOL 10 MG/ML 20 ML VIAL IV ONE (09:08)
--- NOTE | 2022-02-17 09:26 | P.OP ---
Date of Procedure: 02/17/22 Preoperative Diagnosis: Left knee adhesions Postoperative Diagnosis: Left knee adhesions Procedure(s) Performed: Manipulation under anesthesia left knee Anesthesia: MAC Surgeon: Keyon Baum Estimated Blood Loss (ml): 0 Pathology: none sent Condition: stable Disposition: PACU Indications for Procedure: 61-year-old patient seen with persistent left knee adhesions after previously having undergone total knee arthroplasty. I discussed options for treatment. She elected to proceed with manipulation under anesthesia left. Operative Findings: see description of procedure Description of Procedure: Patient was taken to a monitored area. She underwent IV sedation by the department of anesthesia. Once adequate anesthesia was noted I performed a manipulation of the left knee achieving full range of motion with audible tearing of the adhesions. I noted full range of motion and good stability of the knee. The patient was awakened having tolerated procedure well.
[2022-02-17] MEDS: fentaNYL (PF) 50 MCG/ML 2 ML AMP IV PRN ×2 (09:31→09:40)
[2022-02-17 10:16] VITALS: RESP 20
[2022-02-17 10:30] VITALS: BP 155/70; PULSE 56
== END 2022-02-17 10:40 | disposition home or self-care (01) ==
LOC: OR 08:16
PROVIDERS: ATTEND Orthopaedic Surgery
DX: M24.662 Ankylosis, left knee (principal); Z96.652 Presence of left artificial knee joint; Z79.890 Hormone replacement therapy; E03.9 Hypothyroidism, unspecified; J45.909 Unspecified asthma, uncomplicated; E11.9 Type 2 diabetes mellitus without complications; Z79.82 Long term (current) use of aspirin; Z79.899 Other long term (current) drug therapy
CPT/HCPCS: 27570; J2250; J1100; J2405; J3010; J2704

== ENCOUNTER → 2023-02-20 | Outpatient (CLI) | payer BC ==
--- NOTE | 2023-02-24 23:00 | MM ---
Reason for Exam: Screening (asymptomatic). Last mammogram was performed 1 year(s) and 1 month(s) ago. Patient History: Menarche at age 10. First Full-Term at age 23. Hysterectomy at age 45. Postmenopausal. Risk Values: Nila 5 year model risk: 1.0%. NCI Lifetime model risk: 4.6%. Prior Study Comparison: 08/02/2020 Bilateral Screening Mammogram, [facility]. 02/06/2022 Bilateral MG screening mammo w CAD, [facility]. 02/07/2022 Right MG 3D work up w/cad RT, [facility]. Tissue Density: There are scattered fibroglandular densities. Findings: Analyzed By CAD. Benign bilateral oil cyst calcifications are redemonstrated. There is no suspicious group of microcalcifications or new suspicious mass in either breast. Overall Assessment: Benign, BI-RAD 2 Management: Screening Mammogram of both breasts in 1 year. . Patient should continue monthly self-breast exams. A clinical breast exam by your physician is recommended on an annual basis. This exam should not preclude additional follow-up of suspicious palpable abnormalities. Note on Nila scores and lifetime risk: 1. A Nila score greater than 3% is considered moderate risk. If this is the case, consider specialist referral to assess eligibility for a risk reducing agent. 2. If overall lifetime risk for the development of breast cancer is 20% or higher, the patient may qualify for future screening with alternating mammogram and breast MRI. Electronically signed and approved by: Skylar Martinez M.D. Radiologist
== END | disposition home or self-care (01) ==
LOC: RADMAMWWP 15:32
PROVIDERS: ATTEND Family Medicine
DX: Z12.31 Encounter for screening mammogram for malignant neoplasm of breast (principal); Z78.0 Asymptomatic menopausal state
CPT/HCPCS: 77067

== ENCOUNTER → 2024-02-20 | Outpatient (CLI) | payer BC ==
[2024-02-20 13:18] LABS: HCT 41.6 % (37.2-46.3); HGB 13.5 g/dL (12.0-15.0); MCHC 32.5 g/dL (32.0-37.0); MCV 95.6 FL (80.0-97.0); Mean Platelet Volume 9.8 FL (9.5-12.2); NRBC Per 100 WBC 0 X 10*3/uL (0.00-0.01); Platelet Count 182 X 10*3/uL (140-440); RBC 4.35 X 10*6/uL (4.10-5.20); RDW 13.1 % (11.5-14.5); WBC 4.36 X 10*3/uL (4.50-10.00)
[2024-02-20 13:40] LABS: BUN/Creat Ratio 22.14 Ratio (12.00-20.00); Blood Urea Nitrogen 15.5 mg/dL (9.0-27.0); Glucose 97 mg/dL (70-110); LDL Cholesterol,Calculated 79.3 mg/dL (0.0-131.0); VLDL Calculation 16.26 mg/dL (5.00-40.00)
[2024-02-20 13:41] LABS: ALT 15 U/L (8-44); AST 19 U/L (13-35); Calcium 9.6 mg/dL (8.7-10.3); Carbon Dioxide 25.2 mmol/L (21.6-31.8); Chloride 107 mmol/L (96-109); Sodium 141 mmol/L (135-145)
== END | disposition home or self-care (01) ==
LOC: LABWHC1 07:49
PROVIDERS: ATTEND Internal Medicine Cardiovascular Disease
DX: E78.2 Mixed hyperlipidemia (principal)
CPT/HCPCS: 36415; 80048; 80061; 84450; 84460; 85027

== ENCOUNTER 2024-03-01 09:07 | Day surgery (SDC) | payer BC ==
[~2024-03-01 09:07] MED LIST changes: +ALPRAZolam 0.25 MG TAB PO PRN; +ALPRAZolam 0.5 MG TAB PO PRN; +ASPIRIN 325 MG TAB PO STA; -DEXAMETHASONE SOD PHOSPHATE 4 MG/ML 1 ML VIAL IV ONE; -LACTATED RINGERS 1,000 ML IV SCH; +NITROGLYCERIN SL TABS 0.4 MG TAB SUBLINGUAL PRN; -ONDANSETRON 4 MG/2 ML VIAL IVP ONE; +SODIUM CHLORIDE 0.9% 1,000 ML in EMPTY BAG 1 BAG IV SCH
[2024-03-01] MEDS: SODIUM CHLORIDE 0.9% 1,000 ML IV ONE (09:15)
[2024-03-01 09:39] VITALS: RESP 16; TEMP 97.7
[2024-03-01 09:42] LABS: Glucose,Whole Blood 60 mg/dL (70-110)
[2024-03-01 10:03] LABS: Glucose,Whole Blood 106 mg/dL (70-110)
[2024-03-01] MEDS ORDERED: VERAPAMIL 2.5 MG/ML 2 ML AMP ONE (10:41)
[2024-03-01] MEDS ORDERED: HEPARIN SODIUM 1,000 UN/ML (10ML VL) ONE (10:41)
[2024-03-01] MEDS ORDERED: LIDOCAINE 1% INJ 10MG/ML (20 ML MDV) ONE (10:41)
[2024-03-01] MEDS ORDERED: fentaNYL (PF) 50 MCG/ML 2 ML AMP ONE (10:41)
[2024-03-01] MEDS: HEPARIN SODIUM,PORCINE 10,000 UNIT in SODIUM CHLORIDE 0.9% 1,000 ML IRRIGATION PRN (10:48)
[2024-03-01] MEDS: HEPARIN SODIUM,PORCINE (1 ML) 2,500 UNIT in SODIUM CHLORIDE 0.9% 250 ML IRRIGATION PRN (10:48)
[2024-03-01] MEDS: MIDAZOLAM 2 MG/2 ML VIAL IVP ONE (10:48)
[2024-03-01] MEDS: fentaNYL (PF) 50 MCG/ML 2 ML AMP IVP ONE (10:48)
[2024-03-01] MEDS: LIDOCAINE 1% INJ 10MG/ML (20 ML MDV) SQ ONE (10:51)
[2024-03-01] MEDS: VERAPAMIL SYRINGE (5 MG/10 ML) INTRAARTER ONE (10:53)
[2024-03-01] MEDS: HEPARIN SODIUM 1,000 UN/ML (10ML VL) IVP ONE (10:57)
[2024-03-01] MEDS: IOPAMIDOL-370 200ML BTL INJ ONE (11:08)
[2024-03-01] MEDS ORDERED: RX INFO: IV CONTRAST WAS GIVEN 1 EACH MISC MISCELLANE PRN (11:15)
[2024-03-01] MEDS ORDERED: SODIUM CHLORIDE 0.9% 1,000 ML IV SCH (11:15)
--- NOTE | 2024-03-01 11:34 | CC ---
CARDIAC CATHETERIZATION REPORT INDICATION: Chest pain with abnormal stress test. PROCEDURE NOTE: After obtaining informed consent, left heart catheterization and coronary angiogram were performed via the right radial artery using standard Nilton catheters. The patient tolerated the procedure well without any obvious immediate complications. A TR band was used for hemostasis. The patient received moderate conscious sedation. Total sedation time was 15 minutes. The patient was given verapamil and heparin per protocol. Right radial artery access was obtained using Seldinger technique. A 6-Upper Sorbian sheath was placed. Catheters and wires were floated into the ascending aorta under fluoroscopic guidance. FINDINGS: 1. Hemodynamics: Left ventricular end-diastolic pressure is 15 mmHg. There is no significant gradient across the aortic valve. 2. Left ventriculogram: Left ventriculogram was not performed. 3. Angiographic data: Right coronary artery right coronary artery is a large dominant vessel and is free of significant stenosis. Left main coronary artery is a normal- sized vessel and is free of disease, divides into left anterior descending coronary artery and circumflex coronary artery. Circumflex coronary artery and its branches are free of significant stenosis. LAD shows a sluggish flow, but no focal hemodynamically significant lesions. The distal LAD is a fairly small caliber vessel. CONCLUSIONS: 1. No significant obstructive CAD noted on this study. 2. False-positive stress test. MMODL / IJN: [id number] /
--- NOTE | 2024-03-01 11:34 | LTR ---
Dear Dr. Yu, I performed cardiac catheterization on Liliana Kelly. A detailed catheterization note is enclosed with records. In brief, the cardiac catheterization did not reveal significant obstructive CAD. The patient's chest discomfort is noncardiac in origin and the stress test is a falsely positive stress test. Thank you for giving us the privilege for participating the care of this pleasant lady. MMRONL / IJN: [id number] /
[2024-03-01 15:31] VITALS: PULSE 58
[2024-03-01 15:50] VITALS: BP 128/75
== END 2024-03-01 14:43 | disposition home or self-care (01) ==
LOC: CATHCVL 09:07
PROVIDERS: ATTEND Internal Medicine Cardiovascular Disease
DX: R94.39 Abnormal result of other cardiovascular function study
CPT/HCPCS: 93458

== ENCOUNTER → 2024-03-31 | Outpatient (CLI) | payer BC ==
--- NOTE | 2024-04-04 08:52 | MM ---
Reason for Exam: Screening (asymptomatic). Last mammogram was performed 1 year(s) and 1 month(s) ago. Patient History: Menarche at age 10. First Full-Term at age 23. Hysterectomy at age 45. Postmenopausal. Risk Values: Nila 5 year model risk: 1.0%. NCI Lifetime model risk: 4.4%. Prior Study Comparison: 02/06/2022 Bilateral MG screening mammo w CAD, [facility]. 02/07/2022 Right MG 3D work up w/cad RT, [facility]. 02/20/2023 Bilateral MG screening mammo w CAD, [facility]. Tissue Density: The breasts are almost entirely fatty. Findings: Analyzed By CAD. Right breast: There is no suspicious group of microcalcifications or new suspicious mass. Benign-appearing calcifications right breast. Left breast: There is no suspicious group of microcalcifications or new suspicious mass. Overall Assessment: Benign, BI-RAD 2 Management: Screening Mammogram of both breasts in [address] [facility] will attempt to contact patient to return for supplemental views and ultrasound if indicated. Patient should continue monthly self-breast exams. A clinical breast exam by your physician is recommended on an annual basis. This exam should not preclude additional follow-up of suspicious palpable abnormalities. Note on Nila scores and lifetime risk: 1. A Nila score greater than 3% is considered moderate risk. If this is the case, consider specialist referral to assess eligibility for a risk reducing agent. 2. If overall lifetime risk for the development of breast cancer is 20% or higher, the patient may qualify for future screening with alternating mammogram and breast MRI. [facility], , 04/04/2024 8:47 AM. Electronically signed and approved by: Jose Luna DO
== END | disposition home or self-care (01) ==
LOC: RADMAMWWP 16:38
PROVIDERS: ATTEND Family Medicine
CPT/HCPCS: 77067

== ENCOUNTER → 2024-08-13 | Outpatient (CLI) | payer BC ==
[2024-08-13 13:19] LABS: HCT 42.9 % (37.2-46.3); HGB 13.9 g/dL (12.0-15.0); MCH 30.4 pg (27.0-32.0); MCHC 32.4 g/dL (32.0-37.0); MCV 93.9 FL (80.0-97.0); Mean Platelet Volume 9.9 FL (9.5-12.2); NRBC Per 100 WBC 0.03 X 10*3/uL (0.00-0.01); Platelet Count 218 X 10*3/uL (140-440); RBC 4.57 X 10*6/uL (4.10-5.20); RDW 13.8 % (11.5-14.5); WBC 4.84 X 10*3/uL (4.50-10.00)
[2024-08-13 13:47] LABS: ALT 17 U/L (8-44); AST 21 U/L (13-35); Albumin 4.4 g/dL (3.8-4.9); Albumin/Globulin Ratio 1.38 Ratio (1.60-3.17); Alkaline Phosphatase 60 U/L (41-126); BUN/Creat Ratio 28.57 Ratio (12.00-20.00); Calcium 9.7 mg/dL (8.7-10.3); Carbon Dioxide 24.3 mmol/L (21.6-31.8); Chloride 106 mmol/L (96-109); Chol/HDL Ratio 2.74 Ratio; Globulin 3.2 g/dL (1.6-3.3); Glucose 107 mg/dL (70-110); LDL Cholesterol,Calculated 102.6 mg/dL (0.0-131.0); Potassium 4.5 mmol/L (3.5-5.5); Sodium 141 mmol/L (135-145); Total Bilirubin 0.5 mg/dL (0.3-1.2); Total Protein 7.6 g/dL (6.2-8.2); VLDL Calculation 18.76 mg/dL (5.00-40.00)
== END | disposition home or self-care (01) ==
LOC: LABWHC1 08:15
PROVIDERS: ATTEND Family Medicine
DX: Z00.00 Encounter for general adult medical examination without abnormal findings (principal); E55.9 Vitamin D deficiency, unspecified
CPT/HCPCS: 36415; 80053; 80061; 82306; 85027